=== PATIENT | male | born 1995 | race Caucasian/White ===

== ENCOUNTER 2022-05-22 04:33 | Emergency (ER) | payer BC ==
[~2022-05-22] VITALS: Ht 185.4 cm; Wt 138.3 kg
[2022-05-22 04:40] VITALS: BP 143/96
--- NOTE | 2022-05-22 04:41 | NUR ---
[id number] C/O ALLERGIC REACTION WHILE DRIVING, USED EPI PEN. PT IS A/O X 4, RR EVEN AND UNLABORED, NO SOB NOTED. TAKEN TO ER BED 10. PT PLACED ON MONITORS.
== END 2022-05-22 05:35 | disposition home or self-care (01) ==
LOC: ER 04:39
DX: T78.40XA Allergy, unspecified, initial encounter (principal); X58.XXXA Exposure to other specified factors, initial encounter